=== PATIENT | male | born 1970 | race Caucasian/White ===

== ENCOUNTER 2024-03-22 14:51 | Emergency (ER) | payer MEDICAID, SELFPAY ==
[2024-03-22 14:51] VITALS: BMI 27.2
[2024-03-22 15:39] VITALS: PULSE 100; RESP 16; TEMP 36.5; O2SAT 100; BMI 26.8
--- NOTE | 2024-03-22 15:39 | XR_ITS ---
Examination: Hand, right 3 views Technique: Hand AP, oblique, lateral 3 views Date and time of exam: March 22, 2024 1549 hours INDICATIONS: Redness swelling and pain infection. Discharge right first digit this week FINDINGS: Moderate osteopenia No fracture Cystic change at the base of the distal phalanx first digit but no marga cortical bone destruction No opaque foreign body IMPRESSION: No opaque foreign body Consider MRI hand follow-up as clinically warranted
--- NOTE | 2024-03-22 15:41 | PD.EDRME ---
Rapid Medical Screening Exam RME Arrival date/time: 03/22/24 14:51 53-year-old male presents the emergency department complaints of infection to the right hand Chief Complaint: Extremity Injury, Upper Time Seen by Provider: 03/22/24 15:03 Vital signs: Vital Signs Temperature 97.7 F 03/22/24 15:39 Pulse Rate 100 03/22/24 15:39 Respiratory Rate 16 03/22/24 15:39 Pulse Oximetry (%) 100 03/22/24 15:39 Oxygen Delivery Method Room Air 03/22/24 15:39
[2024-03-22] MEDS: IBUPROFEN TAB 400 MG TABLET 800 MG PO (15:58)
== END 2024-03-22 18:12 | disposition left against medical advice (07) ==
LOC: SERX 15:47
PROVIDERS: Emergency Provider Emergency Medicine
DX: S69.91XA Unspecified injury of right wrist, hand and finger(s), initial encounter (principal); X58.XXXA Exposure to other specified factors, initial encounter; Z53.29 Procedure and treatment not carried out because of patient's decision for other reasons
CPT/HCPCS: 73130; 80053; 80307; 80320; 83036; 83605; 84145; 84484; 85025; 85610; 85652; 85730; 86140; 87040; 99281; A9270; G0480